=== PATIENT | female | born 1990 | race African-American/Black ===

== ENCOUNTER 2018-11-13 03:47 | Inpatient (IN) | payer SELFPAY ==
[~2018-11-13] VITALS: Ht 160 cm; Wt 90.7 kg
[2018-11-13] MEDS ORDERED: LACT. RINGERS/OXYTOCIN 20UNITS 1,000 ML IV SCH (04:55)
[2018-11-13] MEDS ORDERED: DERMOPLAST 60ML BOTTLE TOP PRN (05:00)
[2018-11-13] MEDS ORDERED: PHISODERM TOP SOLN 240ML BTL TOP PRN (05:00)
[2018-11-13] MEDS ORDERED: CARBOPROST TROMETHAMINE 250 MCG/1ML VIAL IM PRN (05:00)
[2018-11-13] MEDS ORDERED: NALBUPHINE HCL 10 MG/1ml INJECTION IV PRN ×2 (05:00→14:15)
[2018-11-13] MEDS ORDERED: LIDOCAINE 2%HCL (LOCAL ANESTH.) INJ 20ML MDV ID ONE (05:00)
[2018-11-13] MEDS ORDERED: METHYLERGONOVINE MALEATE 0.2 MG/ML AMP IM PRN (05:00)
[2018-11-13] MEDS: LACTATED RINGER'S 1,000 ML IV SCH ×3 (05:30→20:55)
[2018-11-13] MEDS ORDERED: TERBUTALINE SULFATE 1 MG/ML 1ML VIAL SC ONE (06:00)
[2018-11-13 07:01] LABS: Basophils # (auto) 0.1 uL; Basophils % (auto) 0.5 % (0.0-2.0); Eosinophils # (auto) 0.2 uL; Hematocrit 34.1 % (36.0-46.0); Hemoglobin 11.4 g/dL (12.2-16.2); Lymphocytes % (auto) 19.2 % (10.0-50.0); Mean Corpuscular Hgb Conc. 33.3 g/dL (32.0-36.0); Mean Corpuscular Volume 93.1 fL (80.0-100.0); Monocytes # (auto) 0.9 uL; Monocytes % (auto) 5.6 % (0.0-12.0); Neutrophils # (auto) 11.4 uL; Neutrophils % (auto) 73.7 % (37.0-80.0); Platelet Count (auto) 339 10^3/uL (140-450); Red Blood Cells 3.66 10^6/uL (4.0-5.20); Red Cell Distribution Width 13.9 % (11.8-14.3); White Blood Cell 15.4 10^3/uL (4.4-10.8)
[2018-11-13 07:20] LABS: Albumin 2.4 g/dL (3.4-5.0); Anion Gap 13 (5-15); Blood Urea Nitrogen 9 mg/dL (7-18); Calcium 8.5 mg/dL (8.5-10.1); Carbon Dioxide 18 mmol/L (21-32); Chloride 110 mmol/L (98-107); Glucose 80 mg/dL (74-106); Potassium 3.7 mmol/L (3.5-5.1); Sodium 141 mmol/L (136-145)
[2018-11-13 07:22] LABS: Alanine Aminotransferase 31 U/L (13-56); BUN/Creatinine Ratio 16.4; GFR African American 171 mL/min; GFR Non-African American 141 mL/min
[2018-11-13 07:25] LABS: Alkaline Phosphatase 228 U/L (45-117); Aspartate Aminotransferase 17 U/L (15-37); Bilirubin, Total 0.2 mg/dL (0.2-1.0)
[2018-11-13 07:28] LABS: INR < 0.93 (0.9-1.15); Partial Thromboplastin Time 30.5 sec (23.64-32.05)
[2018-11-13 07:52] LABS: Urine Bacteria NONE SEEN /hpf (None Seen); Urine Blood Negative /uL (Negative); Urine Specific Gravity 1.004 (1.001-1.035); Urine WBC <1 /hpf (0 - 5)
[2018-11-13 08:12] LABS: Alcohol, Urine < 3.0 mg/dL (0-5); Amphetamine Screen, Urine NEGATIVE (NEGATIVE); Barbiturate Scree,Urine NEGATIVE (NEGATIVE); Benzodiazephine Screen, Urine NEGATIVE (NEGATIVE); Cannabinoid Screen, Urine NEGATIVE (NEGATIVE); Cocaine Screen, Urine NEGATIVE (NEGATIVE); Opiate Scree,Urine NEGATIVE (NEGATIVE); Phencyclidine Screen, Urine NEGATIVE (NEGATIVE)
[2018-11-13] MEDS ORDERED: PROMETHAZINE HCL 25 MG/ML 1ML IM PRN (09:45)
[2018-11-13] MEDS ORDERED: PROMETHAZINE HCL 25 MG/ML 1ML IV PRN ×2 (10:15→10:30)
[2018-11-13] MEDS ORDERED: IBUPROFEN 600 MG TAB PO PRN (14:15)
[2018-11-13] MEDS ORDERED: ACETAMINOPHEN 325 MG TAB PO PRN (16:45)
--- NOTE | 2018-11-13 17:00 | NUR ---
Ambulation: Patient OOB with standby assistance by RN. Patient ambulated to bathroom with steady gait. Patient able to void without difficulty. [facility]icare teaching provided with returned demonstration by patient. Clean gown provided and bed linen changed. Patient ambulated back to bed with steady gait and no distress noted.
[2018-11-13 19:00] VITALS: BP 129/67
--- NOTE | 2018-11-13 21:45 | NUR ---
report given to donna waterman rn patient in stable condition.
[2018-11-13] MEDS: IBUPROFEN 600 MG TAB PO PRN (22:03)
[2018-11-13 23:00] VITALS: BP 148/65
[2018-11-14] MEDS ORDERED: PREN-96 PO (00:10)
[2018-11-14 03:00] VITALS: BP 129/65
[2018-11-14] MEDS: IBUPROFEN 600 MG TAB PO PRN ×2 (03:22→14:14)
[2018-11-14 05:08] LABS: RPR Non Reactive (Non Reactive)
[2018-11-14 06:35] VITALS: BP 128/80
[2018-11-14] MEDS: WITCH HAZEL-GLYCERIN PAD TOP PRN ×2 (10:48→14:14)
[2018-11-14 11:01] VITALS: BP 144/67
--- NOTE | 2018-11-14 14:16 | NUR ---
IV removal IV DC'd with clean sterile technique, catheter fully intact. Pressure dressing applied to site. Patient tolerated well.
[2018-11-14 15:27] VITALS: BP 142/82
--- NOTE | 2018-11-14 15:30 | NUR ---
VITAL SIGNS DR. BILLS NOTIFIED OF PTS TRENDING VITAL SINGS, LATEST 142/82, HR 65, PT DENIES ANY PAIN. ORDERS RECEIVED FROM DR. BILLS TO DISCHARGE PT HOME AND FOLLOW UP SCHEDULED WITH DR. CASTANO IN 2 WEEKS. READ BACK AND VERIFIED. WILL CARRY OUT.
--- NOTE | 2018-11-14 16:04 | NUR ---
Discharge: Discharge instructions given as ordered. Pt encouraged to follow up with [facility] [employer] as instructed. All questions and concerns addressed. Patient verbalized understanding. Medication reconciliation completed and copy given to patient. Patient encouraged to prepare to depart unit.
--- NOTE | 2018-11-14 17:38 | NUR ---
Discharge: Patient taken to vehicle ambulatory via steady gait, pt declined wheelchair with all personal belongings, accompanied by staff and family member. No distress noted at time of departure, no adverse changes in status since initial assessment.
== END 2018-11-14 17:38 | disposition home or self-care (01) | DRG 807 ==
LOC: LDRP 03:47 → OBSVTOIN 04:50 → LDRP 05:27
PROVIDERS: ADMIT Obstetrics & Gynecology; ATTEND Obstetrics & Gynecology
PROC: 10E0XZZ Delivery of Products of Conception, External Approach (ICD-10-PCS; principal; 2018-11-13)
PROC: 0HQ9XZZ Repair Perineum Skin, External Approach (ICD-10-PCS; 2018-11-13)
DX: O42.92 Full-term premature rupture of membranes, unspecified as to length of time between rupture and onset of labor (principal); Z37.0 Single live birth; Z3A.38 38 weeks gestation of pregnancy; O70.0 First degree perineal laceration during delivery; O69.81X0 Labor and delivery complicated by cord around neck, without compression, not applicable or unspecified
CPT/HCPCS: 36415; 59025; 59409; 80053; 80307; 81001; 81002; 84112; 85025; 85610; 85730; 86592; 86850; 86900; 86901; 96365; 96366; G0378; J2590

== ENCOUNTER 2024-01-01 07:43 | Emergency (ER) | payer MEDICAID ==
[~2024-01-01] VITALS: Ht 160 cm; Wt 90.5 kg
[~2024-01-01 07:43] MED LIST: PREN-96 PO
[2024-01-01 08:31] LABS: Urine Bacteria None Seen /hpf (None Seen)
[2024-01-01 08:45] LABS: Urine Blood Negative /uL (Negative); Urine Clarity Clear (Clear); Urine Color Colorless (Yellow); Urine Protein, UAD Negative (Negative); Urine Specific Gravity 1.003 (1.001-1.035); Urine Urobilinogen Normal (Negative); Urine WBC 1 /hpf (0 - 5)
[2024-01-01 09:10] LABS: Basophils # (auto) 0.1 10 ^3/uL (0-0.2); Basophils % (auto) 0.6 % (0.0-2.0); Eosinophils # (auto) 0.2 10 ^3/uL (0-0.8); Eosinophils % (auto) 2.2 % (0.0-7.0); Hematocrit 37.2 % (36.0-46.0); Hemoglobin 12.7 g/dL (12.2-16.2); Lymphocytes # (auto) 2.3 10 ^3/uL (0.4-5.4); Lymphocytes % (auto) 23.6 % (10.0-50.0); Mean Corpuscular Hemoglobin 28.5 pg (28.0-32.0); Mean Corpuscular Hgb Conc. 34.1 g/dL (32.0-36.0); Mean Corpuscular Volume 83.5 fL (80.0-100.0); Monocytes # (auto) 0.7 10 ^3/uL (0-1.3); Monocytes % (auto) 7.2 % (0.0-12.0); Neutrophils # (auto) 6.5 10 ^3/uL (1.6-8.6); Neutrophils % (auto) 66.4 % (37.0-80.0); Nucleated Red Blood Cells % 0.1 %; Platelet Count (auto) 283 10^3/uL (140-450); Red Blood Cells 4.45 10^6/uL (4.0-5.20); Red Cell Distribution Width 16.9 % (11.8-14.3); White Blood Cell 9.8 10^3/uL (4.4-10.8)
[2024-01-01 09:24] LABS: Alanine Aminotransferase 99 U/L (7-40); Albumin 4.1 g/dL (3.2-4.8); Alkaline Phosphatase 130 U/L (46-116); Anion Gap 2 (5-15); Aspartate Aminotransferase 187 U/L (13-40); BUN/Creatinine Ratio 9.5 (10.0-20.0); Blood Urea Nitrogen 7 mg/dL (9-23); Calcium 9.2 mg/dL (8.7-10.4); Carbon Dioxide 26 mmol/L (20-30); Chloride 111 mmol/L (98-107); Glucose 101 mg/dL (74-106); Lipase 46 U/L (12-53); Potassium 3.5 mmol/L (3.5-5.1); Sodium 139 mmol/L (136-145)
[2024-01-01 09:25] LABS: Bilirubin, Total 0.3 mg/dL (0.2-1.0); Total Protein 6.9 g/dL (5.7-8.2)
[2024-01-01] MEDS ORDERED: PANT40TA2 PO (10:30)
[2024-01-01] MEDS ORDERED: ZOFR4T PO (10:30)
[2024-01-01 11:23] VITALS: BP 134/95; PULSE 68; RESP 16; TEMP 98.7; O2SAT 97
== END 2024-01-01 11:25 | disposition home or self-care (01) ==
LOC: ER 07:43
DX: K29.00 Acute gastritis without bleeding (principal); R10.2 Pelvic and perineal pain; F17.210 Nicotine dependence, cigarettes, uncomplicated; Z98.890 Other specified postprocedural states; Z79.899 Other long term (current) drug therapy
CPT/HCPCS: 36415; 76705; 80053; 81001; 83690; 84702; 85025